=== PATIENT | female | born 1985 | race Caucasian/White ===

== ENCOUNTER 2017-02-15 19:16 | Emergency (ER) | payer SELFPAY ==
[~2017-02-15] VITALS: Ht 167.6 cm; Wt 95.4 kg
[2017-02-15] MEDS ORDERED: MOTRIN800 MG PO (21:11)
[2017-02-15] MEDS ORDERED: NORCO 7.5/321 TABLET PO (21:11)
[2017-02-15 21:39] VITALS: BP 124/83
== END 2017-02-15 21:40 | disposition home or self-care (01) ==
LOC: EME 19:16
DX: S80.01XA Contusion of right knee, initial encounter (principal); M23.91 Unspecified internal derangement of right knee; V86.09XA Driver of other special all-terrain or other off-road motor vehicle injured in traffic accident, initial encounter; Z88.5 Allergy status to narcotic agent
CPT/HCPCS: 73564; 99281; 99283